=== PATIENT | female | born 1975 | race Two or more races ===

== ENCOUNTER 2017-01-22 17:11 | Emergency (ER) | payer MEDICAID ==
[2017-01-22] MEDS ORDERED: METOPROLOL SUC100 M1 PO (17:39)
[2017-01-22] MEDS ORDERED: NAPROSYN500 M1 PO (17:42)
[2017-01-22] MEDS ORDERED: TRAMADOL HCL50 M2 PO (17:42)
== END 2017-01-22 18:18 ==
LOC: EDMED 17:11
DX: R07.89 Other chest pain (principal); I10 Essential (primary) hypertension